=== PATIENT | male | born 1975 | race Caucasian/White ===

== ENCOUNTER 2017-01-23 15:00 | Emergency (ER) | payer SELFPAY ==
[~2017-01-23] VITALS: Ht 167.6 cm; Wt 78.0 kg
[2017-01-23 15:06] VITALS: Ht 167.6 cm; Wt 78.0 kg
[2017-01-23] MEDS ORDERED: LIDOCAINE/MYLANTA 40 ML BTL PO ONE (17:00)
[2017-01-23] MEDS ORDERED: ASPI-664 PO (17:23)
--- NOTE | 2017-01-23 18:02 | RADRPT ---
PROCEDURE: XR Chest. CLINICAL INDICATION: chest pain TECHNIQUE: Single frontal view of the chest was obtained COMPARISON: None FINDINGS: The heart and mediastinum are within normal limits. The lungs are clear. There is no pleural effusion or pneumothorax. RPTAT: AA IMPRESSION: No acute disease. .Brent Deal MD, Date Time Electronically viewed and signed by .Brent Deal MD, on 01/23/2017 18:02 .S/
[2017-01-23] MEDS ORDERED: RANI150T9 PO (18:28)
--- NOTE | 2017-01-23 18:36 | ERD ---
ER Documentation Chief Complaint Date/Time DATE: 01/23/17 TIME: 18:30 Chief Complaint pt sent by clinic for eval of Chest pain HPI 41-year-old male presents with left-sided and substernal chest pain on and off for 7 months. He became bad today several hours ago and he still has the pain. Is not associated with shortness of breath nausea or any other symptom. Described as a sharp pain. He has no cardiac risk factors. ROS All systems reviewed and are negative except as per history of present illness. Medications Home Meds Active Scripts Ranitidine Hcl* (Zantac*) 150 Mg Tablet, 150 MG PO BID, #60 TAB Prov:JAHAIRA METZGER DO 01/23/17 Reported Medications Aspirin* (Aspirin* EC) 81 Mg Tablet.dr, 81 MG PO DAILY, TAB 01/23/17 Allergies Allergies: Coded Allergies: No Known Allergy (Unverified , 01/23/17) Physical Exam Vitals Vital Signs Date Time Temp Pulse Resp B/P Pulse Ox O2 Delivery O2 Flow Rate FiO2 01/23/17 15:06 97.9 65 18 136/70 98 Physical Exam Const: [] Mild distress, appears uncomfortable Head: Atraumatic Eyes: Normal Conjunctiva ENT: Normal External Ears, Nose and Mouth. Neck: Full range of motion..~ No meningismus. Resp: Clear to auscultation bilaterally Cardio: Regular rate and rhythm, no murmurs Abd: Soft, non tender, non distended. Normal bowel sounds Skin: No petechiae or rashess Ext: No cyanosis, or edema Neur: Awake and alert And oriented 3, no focal deficits Psych: Normal Mood and Affect Results 24 hrs Laboratory Tests Test 01/23/17 17:00 Troponin I < 0.012ng/ml Current Medications Medications (Trade) Dose Ordered Sig/Mary Route PRN Reason Start Time Stop Time Status Last Admin Dose Admin Miscellaneous Medication (Gi Cocktail (2)) 40 ml ONCE ONCE PO 01/23/17 17:00 01/23/17 17:01 DC 01/23/17 17:00 Procedures/MDM Atypical chest pain likely secondary to acid reflux. No risk factors. EKG was performed which was nonischemic and chest x-ray was negative. He was given a GI cocktail which immediately completely relieved his pain. Going to discharge instructions see primary carwe doctor EKG interpretation: Normal sinus rhythm rate of 66, normal axis, no ST or T- wave changes concerning for acute ischemia T-wave inversions in inferior leads with no ST elevations or depressions concerning for acute ischemia, normal intervals. Chest x-ray interpretation: I see no acute process. Complete normal checks x- ray. No pneumothorax, no infiltrates, no fractures, no pulmonary edema. Departure Diagnosis: Primary Impression: GERD (gastroesophageal reflux disease) Additional Impression: Chest pain Condition: Stable Patient Instructions: Chest Pain, Uncertain Cause, Gerd (Adult) Referrals: [facility] YOU HAVE RECEIVED A MEDICAL SCREENING EXAM AND THE RESULTS INDICATE THAT YOU DO NOT HAVE A CONDITION THAT REQUIRES URGENT TREATMENT IN THE EMERGENCY DEPARTMENT. FURTHER EVALUATION AND TREATMENT OF YOUR CONDITION CAN WAIT UNTIL YOU ARE SEEN IN YOUR DOCTORS OFFICE WITHIN THE NEXT 1-2 DAYS. IT IS YOUR RESPONSIBILITY TO MAKE AN APPOINTMENT FOR FOLOW-UP CARE. IF YOU HAVE A PRIMARY DOCTOR --you should call your primary doctor and schedule an appointment IF YOU DO NOT HAVE A PRIMARY DOCTOR YOU CAN CALL OUR PHYSICIAN REFERRAL HOTLINE AT IF YOU CAN NOT AFFORD TO SEE A PHYSICIAN YOU CAN CHOSE FROM THE FOLLOWING [facility] [address] [facility] [address] [facility] [facility] [address] [facility] [place] [facility] [address] [facility]. [facility] [address] [facility]. [facility]. [address] Additional Instructions: Llame al doctor MAANA y edilia kris MAGALI PARA DENTRO DE 2-3 SIMON.Dgale a la secretaria que nosotros le instruimos hacer esta magali.Avise o llame si abdullahi condicin se empeora antes de la magali. Regresa aqui si peor o no mejor. JAHAIRA METZGER DO Jan 23, 2017 18:36
[2017-01-23 19:16] VITALS: BP 130/71; PULSE 79; RESP 19; TEMP 97.9
== END 2017-01-23 19:19 | disposition home or self-care (01) ==
LOC: E/R 15:00
DX: K21.9 Gastro-esophageal reflux disease without esophagitis (principal); Z79.82 Long term (current) use of aspirin
CPT/HCPCS: 71010; 84484